=== PATIENT | male | born 1990 | race Caucasian/White ===

== ENCOUNTER 2017-01-31 11:32 | Emergency (ER) | payer SELFPAY ==
[2017-01-31] MEDS ORDERED: SODIUM CHLORIDE 0.9% 1,000 ML IV ONE (12:02)
[2017-01-31] MEDS ORDERED: KETOROLAC 30 MG/ML 1 ML VIAL IVP STA (12:02)
[2017-01-31] MEDS ORDERED: DEXAMETHASONE SOD PHOSPHATE 10 MG/ML 1 ML VIAL IV STA (12:02)
[2017-01-31] MEDS ORDERED: ONDANSETRON 4 MG/2 ML VIAL IVP STA (12:03)
--- NOTE | 2017-01-31 12:15 | ED ---
URI HPI - General Chief Complaint: Upper Respiratory Infection Stated Complaint: VOMITING, YELLOW PHLEM Source: patient Mode of arrival: ambulatory Limitations: no limitations - History of Present Illness Initial Comments: Patient is a 26-year-old male who presents for evaluation for sore throat, congestion, productive cough, mild headache over the last 3 days. Past medical history as below. During the last 3 days, the patient states he has had the above symptoms. States that he is sweating. Did not take his temperature to see if he has a fever but feels warm to the touch. Had a productive cough with yellow/white chunks. He has thick nasal drainage. Associated shortness of breath. States that he has a sore throat. He denies any drooling or difficulty swallowing. He does however state he has noticed a change in his voice. He states that it is deeper. Positive sick contacts with girlfriend who has similar symptoms. Did not get a flu shot this past year. Has tried [id number] remedies with some mild relief for about an hour. Yesterday he did have a couple episodes of emesis. He denies chest pain, abdominal pain, diarrhea, pain or burning with urination. - Related Data Home Medications Medication Instructions Recorded Confirmed D-Methorphan/Acetamin/Doxylamn 30 ml PO Q4-6H PRN 01/31/17 01/31/17 [Vicks Nyquil Cold & Flu Liquid] Phenylephrine/Dm/Acetaminop/GG 30 ml PO Q4-6H PRN 01/31/17 01/31/17 [Vicks Dayquil Severe Cold-Flu] guaiFENesin [Mucinex] 600 mg PO Q12HR 01/31/17 01/31/17 Previous Rx's Medication Instructions Recorded Amoxic-Pot Clav 875-125Mg 1 tab PO Q12HR 7 Days 01/31/17 [Augmentin 875-125] Allergies Allergy/AdvReac Type Severity Reaction Status Date / Time latex Allergy Unknown Verified 01/31/17 12:07 Sulfa (Sulfonamide Allergy Unknown Verified 01/31/17 12:07 Antibiotics) Review of Systems ROS Statement: Those systems with pertinent positive or pertinent negative responses have been documented in the HPI. ROS Other: All systems not noted in ROS Statement are negative. Past Medical History Past Medical History: Hearing Disorder / Deafness History of Any Multi-Drug Resistant Organisms: None Reported Past Surgical History: Orthopedic Surgery Additional Past Surgical History / Comment(s): face plastic surgery Past Psychological History: No Psychological Hx Reported Smoking Status: Current every day smoker Past Alcohol Use History: None Reported Past Drug Use History: None Reported General Exam Limitations: no limitations General appearance: alert, in no apparent distress, other (Nontoxic-appearing) Head exam: Present: atraumatic, normocephalic, normal inspection Eye exam: Present: normal appearance, PERRL, EOMI. Absent: scleral icterus, conjunctival injection, periorbital swelling ENT exam: Present: normal exam, mucous membranes moist, other (Mucous members are somewhat dry. Posterior oropharynx is erythematous. No tonsillar swelling or exudates. Posterior oropharynx is otherwise clear and I do not see any purulent drainage. His bilateral nasal turbinates are red and injected. No purulent drainage noted.) Neck exam: Present: normal inspection, lymphadenopathy, other (Anterior nontender cervical lymphadenopathy.). Absent: tenderness, meningismus Respiratory exam: Present: normal lung sounds bilaterally, other (Clear bilaterally without wheezes rales or rhonchi. No conversational dyspnea. No hypoxia.). Absent: respiratory distress, wheezes, rales, rhonchi, stridor Cardiovascular Exam: Present: regular rate, normal rhythm, normal heart sounds. Absent: systolic murmur, diastolic murmur, rubs, gallop, clicks GI/Abdominal exam: Present: soft, normal bowel sounds, other (Abdomen is soft and nontender. Negative Rodriguez sign. No peritoneal signs.). Absent: distended , tenderness, guarding, rebound, rigid Extremities exam: Present: normal inspection, full ROM, normal capillary refill. Absent: tenderness, pedal edema, joint swelling, calf tenderness Back exam: Present: normal inspection Neurological exam: Present: alert, oriented X3, CN II-XII intact Psychiatric exam: Present: normal affect, normal mood Skin exam: Present: warm, dry, intact, normal color. Absent: rash Course Vital Signs 01/31/17 01/31/17 11:43 13:42 Temperature 98.1 F 97.9 F Pulse Rate 90 63 Respiratory 20 18 Rate Blood Pressure 132/98 128/64 O2 Sat by Pulse 97 97 Oximetry Medical Decision Making - Medical Decision Making Patient is a 26-year-old male presents for evaluation for URI symptoms over the last 3 days. Is having chills with sweating and had 1 day history of nausea and vomiting. Clinically has bacterial URI. However with the change in his voice have a low concern for possible epiglottitis though he is not having any drooling or difficulty swallowing. Will order two-view chest x-ray with soft tissue neck. Influenza. Strep. Basic labs with IV fluids, steroids, Toradol. 1225: Notified by staff that the patient does not want any liquids going in him. Refusing IV fluids and IV medications. We'll order 10 mg by mouth Decadron and 400 mg by mouth Motrin. 1322: Reviewed lab studies. No abnormality. Flu/strep negative. Awaiting final read on plain films. 1400: Awaiting final reads from radiologist. 1405: Patient wants to leave AGAINST MEDICAL ADVICE. He states that he does not want to wait for the final reads for a chest x-ray and a soft tissue neck. Patient states that he just wants a work note so he can go home. Discussed risks and benefits of this including disability and . On my own read I do not see clear epiglottitis nor do I see a pneumonia. Because the patient was having white/yellow thick discharge from his nose and coughing up thick yellow discharge, will discharge home with a course of Augmentin. Encourage close follow-up with primary care physician. Discussed signs and symptoms on when to return to the emergency department for further evaluation. Patient voiced understanding. Understands risks of leaving without completion of services. - Lab Data Result diagrams: 01/31/17 12:32 01/31/17 12:32 Lab Results 01/31/17 01/31/17 01/31/17 Range/Units 12:32 12:32 12:32 WBC 9.4 (3.8-10.6) k/uL RBC 5.64 (4.30-5.90) m/uL Hgb 17.1 (13.0-17.5) gm/dL Hct 51.6 (39.0-53.0) % MCV 91.5 (80.0-100.0) fL MCH 30.4 (25.0-35.0) pg MCHC 33.2 (31.0-37.0) g/dL RDW 12.4 (11.5-15.5) % Plt Count 201 (150-450) k/uL Neutrophils % 69 % Lymphocytes % 23 % Monocytes % 3 % Eosinophils % 3 % Basophils % 0 % Neutrophils # 6.5 (1.3-7.7) k/uL Lymphocytes # 2.1 (1.0-4.8) k/uL Monocytes # 0.3 (0-1.0) k/uL Eosinophils # 0.3 (0-0.7) k/uL Basophils # 0.0 (0-0.2) k/uL Sodium 143 (137-145) mmol/L Potassium 5.0 (3.5-5.1) mmol/L Chloride 108 H (98-107) mmol/L Carbon Dioxide 28 (22-30) mmol/L Anion Gap 7 mmol/L BUN 9 (9-20) mg/dL Creatinine 0.95 (0.66-1.25) mg/dL Est GFR (MDRD) Af Amer >60 (>60 ml/min/1.73 sqM) Est GFR (MDRD) Non-Af >60 (>60 ml/min/1.73 sqM) Glucose 92 (74-99) mg/dL Calcium 9.7 (8.4-10.2) mg/dL Total Bilirubin 0.9 (0.2-1.3) mg/dL AST 25 (17-59) U/L ALT 20 L (21-72) U/L Alkaline Phosphatase 49 (38-126) U/L Total Protein 6.2 L (6.3-8.2) g/dL Albumin 3.8 (3.5-5.0) g/dL Influenza Type A RNA Not Detected (Not Detectd) Influenza Type B (PCR) Not Detected (Not Detectd) Group A Strep Rapid (Negative) 01/31/17 Range/Units 12:32 WBC (3.8-10.6) k/uL RBC (4.30-5.90) m/uL Hgb (13.0-17.5) gm/dL Hct (39.0-53.0) % MCV (80.0-100.0) fL MCH (25.0-35.0) pg MCHC (31.0-37.0) g/dL RDW (11.5-15.5) % Plt Count (150-450) k/uL Neutrophils % % Lymphocytes % % Monocytes % % Eosinophils % % Basophils % % Neutrophils # (1.3-7.7) k/uL Lymphocytes # (1.0-4.8) k/uL Monocytes # (0-1.0) k/uL Eosinophils # (0-0.7) k/uL Basophils # (0-0.2) k/uL Sodium (137-145) mmol/L Potassium (3.5-5.1) mmol/L Chloride (98-107) mmol/L Carbon Dioxide (22-30) mmol/L Anion Gap mmol/L BUN (9-20) mg/dL Creatinine (0.66-1.25) mg/dL Est GFR (MDRD) Af Amer (>60 ml/min/1.73 sqM) Est GFR (MDRD) Non-Af (>60 ml/min/1.73 sqM) Glucose (74-99) mg/dL Calcium (8.4-10.2) mg/dL Total Bilirubin (0.2-1.3) mg/dL AST (17-59) U/L ALT (21-72) U/L Alkaline Phosphatase (38-126) U/L Total Protein (6.3-8.2) g/dL Albumin (3.5-5.0) g/dL Influenza Type A RNA (Not Detectd) Influenza Type B (PCR) (Not Detectd) Group A Strep Rapid Negative (Negative) Disposition Clinical Impression: Sinusitis, Left against medical advice Disposition: Left Against Medical Advice Condition: Good Instructions: Upper Respiratory Infection (ED) Prescriptions: Amoxic-Pot Clav 875-125Mg [Augmentin 875-125] 1 tab PO Q12HR 7 Days Referrals: Marlys Watts MD [Primary Care Provider] - 1-2 days
[2017-01-31] MEDS ORDERED: ONDANSETRON ODT 4 MG TAB PO STA (12:26)
[2017-01-31] MEDS ORDERED: DEXAMETHASONE 4 MG TAB PO STA (12:26)
[2017-01-31] MEDS ORDERED: IBUPROFEN 600 MG TAB PO STA (12:26)
[2017-01-31 12:40] LABS: Basophils % (A) 0 %; CH 31.4; CHCM 34.5; Eosinophils # (A) 0.3 k/uL (0-0.7); Eosinophils % (A) 3 %; HCT 51.6 % (39.0-53.0); HDW 2.74; HGB 17.1 gm/dL (13.0-17.5); Luc # (Auto) 0.15; Luc % (Auto) 2; Lymphocytes # (A) 2.1 k/uL (1.0-4.8); Lymphocytes % (A) 23 %; MCH 30.4 pg (25.0-35.0); MCHC 33.2 g/dL (31.0-37.0); MCV 91.5 fL (80.0-100.0); Mean Platelet Volume 6.8; Monocytes # (A) 0.3 k/uL (0-1.0); Monocytes % (A) 3 %; Neutrophils # (A) 6.5 k/uL (1.3-7.7); Neutrophils % (A) 69 %; RBC 5.64 m/uL (4.30-5.90); RDW 12.4 % (11.5-15.5); WBC 9.4 k/uL (3.8-10.6); WBC (Perox) 9.53
[2017-01-31 12:53] LABS: ALT 20 U/L (21-72); AST 25 U/L (17-59); Alkaline Phosphatase 49 U/L (38-126); Anion Gap 7 mmol/L; Blood Urea Nitrogen 9 mg/dL (9-20); Calcium 9.7 mg/dL (8.4-10.2); Carbon Dioxide 28 mmol/L (22-30); Chloride 108 mmol/L (98-107); Glucose 92 mg/dL (74-99); Non-African American GFR(MDRD) >60 (>60 ml/min/1.73 sqM); Sodium 143 mmol/L (137-145); Total Bilirubin 0.9 mg/dL (0.2-1.3); Total Protein 6.2 g/dL (6.3-8.2)
[2017-01-31 13:44] VITALS: BP 128/64; PULSE 63; RESP 18; TEMP 97.9
--- NOTE | 2017-01-31 14:10 | XR ---
Soft tissue neck HISTORY: Cough 2 views of the neck No comparisons Cervical vertebral bodies show preserved height and alignment, disc spaces and prevertebral soft tiss ues are normal. Epiglottis shows a normal appearance in profile. Azygos lobe noted incidentally. Ther e is a spinal curvature in the thoracic spine. Airway is patent. IMPRESSION: No acute abnormality evident
--- NOTE | 2017-01-31 14:11 | XR ---
EXAMINATION TYPE: XR chest 2V DATE OF EXAM: 01/31/2017 1:07 PM COMPARISON: Chest x-ray dated 22 August 2016 HISTORY: Productive cough, pain TECHNIQUE: Frontal and lateral views of the chest are obtained. FINDINGS: There is no focal air space opacity, pleural effusion, or pneumothorax seen. The cardiac silhouette size is within normal limits. There is a spinal curvature. Azygos lobe is noted. The osse ous structures are intact. IMPRESSION: No acute cardiopulmonary process.
== END 2017-01-31 14:16 | disposition left against medical advice (07) ==
LOC: EC 11:32
DX: J32.9 Chronic sinusitis, unspecified (principal); H91.90 Unspecified hearing loss, unspecified ear; F17.200 Nicotine dependence, unspecified, uncomplicated; Z79.899 Other long term (current) drug therapy; Z88.2 Allergy status to sulfonamides; Z91.040 Latex allergy status
CPT/HCPCS: 36415; 80053; 85025; 87081; 87430; 87502; 70360; 71020; 99283; J8540

== ENCOUNTER 2017-10-05 00:27 | Emergency (ER) | payer OTHER ==
[2017-10-05 01:07] VITALS: RESP 18
[2017-10-05] MEDS ORDERED: KETOROLAC 30 MG/ML 1 ML VIAL IM STA (01:37)
--- NOTE | 2017-10-05 01:55 | XR ---
EXAMINATION TYPE: XR chest 2V DATE OF EXAM: 10/05/2017 COMPARISON: 01/31/2017 HISTORY: Back pain TECHNIQUE: Frontal and lateral views of the chest are obtained. FINDINGS: Heart and mediastinum are normal. Lungs are clear. Diaphragm is normal. Bony thorax is int act. IMPRESSION: Normal chest. No change. There is an noted in the right upper lobe azygos fissure which is a normal variant.
[2017-10-05 02:07] LABS: Appearance,Urine Clear (Clear); Bilirubin,Urine Negative (Negative); Glucose,Urine (UA) Negative (Negative); Ketones,Urine Negative (Negative); Leukocyte Esterase,Urine Negative (Negative); Nitrite,Urine Negative (Negative); PH, Urine 6.5 (5.0-8.0); Protein,Urine Negative (Negative); Specific Gravity,Urine 1.014 (1.001-1.035); UA Billing (MACRO vs. MICRO) CHEM; Urobilinogen,Urine <2.0 mg/dL (<2.0)
--- NOTE | 2017-10-05 02:13 | ED ---
Back Pain HPI - General Chief Complaint: Back Pain/Injury Stated Complaint: Back Pain Time Seen by Provider: 10/05/17 01:17 Source: patient Limitations: no limitations - History of Present Illness Initial Comments: 26-year-old male patient presents to the emergency department today for complaints of right subscapular back pain. Patient states that pain started 3- 4 days ago. He describes the pain as a dull aching pain. He states it does worsen with twisting motion. States that he did help his friend move and was lifting heavy boxes. He states that this worsened his pain. He states he did have to take the last 2 days off of work for this. He states that he does think it's getting better however he needed a work note to return to work. He denies any shortness of breath, cough, congestion, fever, or chills with this. He states that he does have a history of scoliosis and often does have back pain. He denies any numbness or tingling to his lower extremities. Denies any saddle anesthesia. Denies any loss of bowel or bladder function. Patient denies any headache, neck pain, dizziness, weakness, abdominal pain, nausea, vomiting, or difficulties with bowel movements or urination. - Related Data Home Medications Medication Instructions Recorded Confirmed Dm/Acetaminophen/Doxylamine [Vicks 30 ml PO Q4-6H PRN 01/31/17 01/31/17 Nyquil Cold & Flu Liquid] Phenylephrine/Dm/Acetaminop/GG 30 ml PO Q4-6H PRN 01/31/17 01/31/17 [Vicks Dayquil Severe Cold-Flu] guaiFENesin [Mucinex] 600 mg PO Q12HR 01/31/17 01/31/17 Previous Rx's Medication Instructions Recorded Amoxic-Pot Clav 875-125Mg 1 tab PO Q12HR 7 Days tablet 01/31/17 [Augmentin 875-125] Ibuprofen [Motrin] 600 mg PO Q8HR PRN #30 tab 10/05/17 Allergies Allergy/AdvReac Type Severity Reaction Status Date / Time latex Allergy Unknown Verified 10/05/17 00:46 Sulfa (Sulfonamide Allergy Unknown Verified 10/05/17 00:46 Antibiotics) Review of Systems ROS Statement: Those systems with pertinent positive or pertinent negative responses have been documented in the HPI. ROS Other: All systems not noted in ROS Statement are negative. Past Medical History Past Medical History: Hearing Disorder / Deafness History of Any Multi-Drug Resistant Organisms: None Reported Past Surgical History: Orthopedic Surgery Additional Past Surgical History / Comment(s): face plastic surgery Past Psychological History: No Psychological Hx Reported Smoking Status: Current every day smoker Past Alcohol Use History: Occasional Past Drug Use History: Marijuana General Exam Limitations: no limitations General appearance: alert, in no apparent distress, other (This is a well- developed, well-nourished adult male patient in no acute distress. Vital signs upon presentation were temperature 97.8F, pulse 129, respirations 18, blood pressure 162/86, pulse ox 97% on room air.) Eye exam: Present: normal appearance, PERRL, EOMI. Absent: scleral icterus, conjunctival injection, periorbital swelling Respiratory exam: Present: normal lung sounds bilaterally. Absent: respiratory distress, wheezes, rales, rhonchi, stridor Cardiovascular Exam: Present: regular rate, normal rhythm, normal heart sounds. Absent: systolic murmur, diastolic murmur, rubs, gallop, clicks GI/Abdominal exam: Present: soft, normal bowel sounds. Absent: distended, tenderness, guarding, rebound, rigid Extremities exam: Present: normal inspection, full ROM, normal capillary refill , other (Strength in upper extremities is 5/5. Full range of motion. Skin pink , warm, and dry.). Absent: tenderness, pedal edema, joint swelling, calf tenderness Back exam: Present: normal inspection, tenderness (Numbness over the right subscapular region.), other (Curvature of the spine noted). Absent: vertebral tenderness Neurological exam: Present: alert, oriented X3, CN II-XII intact Psychiatric exam: Present: normal affect, normal mood Skin exam: Present: warm, dry, intact, normal color. Absent: rash Course Vital Signs 10/05/17 10/05/17 00:44 02:28 Temperature 97.8 F 98 F Pulse Rate 129 H 65 Respiratory 18 18 Rate Blood Pressure 162/86 140/76 O2 Sat by Pulse 97 100 Oximetry Medical Decision Making - Medical Decision Making 26-year-old male patient presented to the emergency department today for evaluation of right subscapular back pain. Physical examination did reveal some mild tenderness to the subscapular region. Lungs were clear. A chest x- ray was obtained which showed no acute cardiopulmonary process. EKG was obtained and was stable. Patient will be discharged home at this time with a prescription for ibuprofen. He is instructed to follow-up with his primary care physician for recheck in 1-2 days. He is instructed to return here immediately for any new, worsening, or concerning symptoms. He verbalizes understanding and agrees with this plan. - Lab Data Lab Results 10/05/17 Range/Units 01:55 Urine Color Yellow Urine Appearance Clear (Clear) Urine pH 6.5 (5.0-8.0) Ur Specific [place] 1.014 (1.001-1.035) Urine Protein Negative (Negative) Urine Glucose (UA) Negative (Negative) Urine Ketones Negative (Negative) Urine Blood Negative (Negative) Urine Nitrite Negative (Negative) Urine Bilirubin Negative (Negative) Urine Urobilinogen <2.0 (<2.0) mg/dL Ur Leukocyte Esterase Negative (Negative) 10/05/17 03:49 EKG obtained at 0154 shows sinus rhythm with a sinus arrhythmia. Left anterior fascicular block. Ventricular rate of 66, LA interval 144, QRS duration 110, QT 400, QTC 419. The fascicular block was stable when compared to EKG from 06/2016. 10/05/17 03:53 - Radiology Data Radiology results: report reviewed, image reviewed Two-view x-ray of the chest shows the heart and mediastinum are normal. Lungs are clear. Diaphragm is normal. Bony thorax is intact. Impression by Dr. Mcclure shows normal chest with no change. There is an noted in the upper lobe azygous fissure which is a normal variant. Disposition Clinical Impression: Back pain Disposition: HOME SELF-CARE Condition: Good Instructions: Back Pain (ED) Additional Instructions: Apply warm moist heat to the area for pain. Take ibuprofen and Tylenol for pain control. Follow-up with your primary care physician for recheck in 1-2 days. Return here immediately for any new, worsening, or concerning symptoms. Prescriptions: Ibuprofen [Motrin] 600 mg PO Q8HR PRN #30 tab PRN Reason: Pain Referrals: Marlys Watts MD [Primary Care Provider] - 1-2 days Time of Disposition: 02:21
[2017-10-05 02:30] VITALS: BP 140/76; PULSE 65; TEMP 98
== END 2017-10-05 02:28 | disposition home or self-care (01) ==
LOC: EC 00:27
DX: M54.9 Dorsalgia, unspecified (principal); F17.200 Nicotine dependence, unspecified, uncomplicated; Z87.39 Personal history of other diseases of the musculoskeletal system and connective tissue; Z79.899 Other long term (current) drug therapy; Z91.040 Latex allergy status; Z88.2 Allergy status to sulfonamides; X50.0XXA Overexertion from strenuous movement or load, initial encounter; Y93.89 Activity, other specified
CPT/HCPCS: 71020; 81003; 93005; 96372; 99284

== ENCOUNTER 2018-04-29 08:45 | Emergency (ER) | payer OTHER ==
[2018-04-29 08:56] VITALS: RESP 18; TEMP 98.5
[2018-04-29] MEDS ORDERED: ONDANSETRON 4 MG/2 ML VIAL IVP STA (09:07)
[2018-04-29] MEDS ORDERED: SODIUM CHLORIDE 0.9% 1,000 ML IV STA (09:07)
[2018-04-29] MEDS ORDERED: FAMOTIDINE 20 MG/2 ML VIAL IV STA (09:07)
--- NOTE | 2018-04-29 09:11 | ED ---
General Adult HPI - General Chief complaint: Abdominal Pain Stated complaint: ABDOMINAL PAIN, VOMITING, NOT EATING, WEAK Time Seen by Provider: 04/29/18 09:02 Source: patient, RN notes reviewed, old records reviewed Mode of arrival: ambulatory Limitations: no limitations - History of Present Illness Initial comments: Patient 27-year-old male presented emergency room today with chief complaint of symptoms of nausea vomiting that increased last 3 days. He does not that over the last several months patient having some symptoms like this. Patient states that he has symptoms a few hours after she wakes up every morning. She states that has had a difficult time keeping anything down. Does admit that he smoked marijuana yesterday which did help keep down one piece of toast. Patient states that it's bandages mobile that he's been vomiting no signs of blood in the emesis. Admits to cramping in the abdomen. Patient denies any other complaints or symptoms. Patient denies any recent fever, chills, shortness of breath, chest pain, back pain numbness or tingling, dysuria or hematuria, constipation or diarrhea, headaches or visual changes, or any other complaints. - Related Data Previous Rx's Medication Instructions Recorded Famotidine [Pepcid] 20 mg PO BID #20 tablet 04/29/18 Ondansetron Odt [Zofran ODT] 4 mg PO Q8HR PRN #20 tab 04/29/18 Allergies Allergy/AdvReac Type Severity Reaction Status Date / Time latex Allergy Unknown Verified 04/29/18 09:01 Sulfa (Sulfonamide Allergy Unknown Verified 04/29/18 09:01 Antibiotics) lactose AdvReac Unknown Verified 04/29/18 09:01 berrie Allergy Swelling Uncoded 04/29/18 08:57 Review of Systems ROS Statement: Those systems with pertinent positive or pertinent negative responses have been documented in the HPI. ROS Other: All systems not noted in ROS Statement are negative. Past Medical History Past Medical History: Hearing Disorder / Deafness History of Any Multi-Drug Resistant Organisms: None Reported Past Surgical History: Orthopedic Surgery Additional Past Surgical History / Comment(s): face plastic surgery Past Psychological History: No Psychological Hx Reported Smoking Status: Current every day smoker Past Alcohol Use History: Occasional Past Drug Use History: Marijuana General Exam - General Exam Comments Initial Comments: General: The patient is awake and alert, in no distress, and does not appear acutely ill. Eye: Pupils are equal, round and reactive to light, extra-ocular movements are intact. No nystagmus. There is normal conjunctiva bilaterally. No signs of icterus. Ears, nose, mouth and throat: There are moist mucous membranes and no oral lesions. Neck: The neck is supple, there is no tenderness or JVD. Cardiovascular: There is a regular rate and rhythm. No murmur, rub or gallop is appreciated. Respiratory: Lungs are clear to auscultation, respirations are non-labored, breath sounds are equal. No wheezes, stridor, rales, or rhonchi. Gastrointestinal: Soft, non-distended, non-tender abdomen without masses or organomegaly noted. There is no rebound or guarding present. No CVA tenderness. Musculoskeletal: Normal ROM, no tenderness. Strength 5/5. Sensation intact. Neurological: A&O x 3. CN II-XII intact, There are no obvious motor or sensory deficits. Coordination appears grossly intact. Speech is normal. Skin: Skin is warm and dry and no rashes or lesions are noted. Psychiatric: Cooperative, appropriate mood & affect, normal judgment. Limitations: no limitations Course Vital Signs 04/29/18 04/29/18 04/29/18 08:53 09:36 10:46 Temperature 98.5 F Pulse Rate 86 67 81 Respiratory 18 18 18 Rate Blood Pressure 145/83 135/79 129/75 O2 Sat by Pulse 97 98 97 Oximetry Medical Decision Making - Medical Decision Making Patient's labs and x-rays have been reviewed. Mildly elevated bilirubin at 1.5. Patient was comfortable states he feels much better at this time. Patient was given Zofran, Pepcid for symptoms. Patient will be discharged home with prescription. Advised follow-up family doctor over the next 2 days. Advised return for any other concerns. - Lab Data Result diagrams: 04/29/18 09:25 04/29/18 09:25 Lab Results 04/29/18 04/29/18 04/29/18 Range/Units 09:25 09:25 10:44 WBC 7.3 (3.8-10.6) k/uL RBC 5.43 (4.30-5.90) m/uL Hgb 17.3 (13.0-17.5) gm/dL Hct 48.6 (39.0-53.0) % MCV 89.6 (80.0-100.0) fL MCH 31.9 (25.0-35.0) pg MCHC 35.6 (31.0-37.0) g/dL RDW 13.3 (11.5-15.5) % Plt Count 165 (150-450) k/uL Neutrophils % 72 % Lymphocytes % 21 % Monocytes % 3 % Eosinophils % 2 % Basophils % 0 % Neutrophils # 5.3 (1.3-7.7) k/uL Lymphocytes # 1.6 (1.0-4.8) k/uL Monocytes # 0.2 (0-1.0) k/uL Eosinophils # 0.1 (0-0.7) k/uL Basophils # 0.0 (0-0.2) k/uL Sodium 143 (137-145) mmol/L Potassium 3.8 (3.5-5.1) mmol/L Chloride 108 H (98-107) mmol/L Carbon Dioxide 25 (22-30) mmol/L Anion Gap 10 mmol/L BUN 14 (9-20) mg/dL Creatinine 1.04 (0.66-1.25) mg/dL Est GFR (CKD-EPI)AfAm >90 (>60 ml/min/1.73 sqM) Est GFR (CKD-EPI)NonAf >90 (>60 ml/min/1.73 sqM) Glucose 102 H (74-99) mg/dL Calcium 9.7 (8.4-10.2) mg/dL Total Bilirubin 1.5 H (0.2-1.3) mg/dL AST 18 (17-59) U/L ALT 22 (21-72) U/L Alkaline Phosphatase 54 (38-126) U/L Total Protein 6.7 (6.3-8.2) g/dL Albumin 4.5 (3.5-5.0) g/dL Amylase 59 (30-110) U/L Lipase 32 (23-300) U/L Urine Color Yellow Urine Appearance Clear (Clear) Urine pH 6.5 (5.0-8.0) Ur Specific [place] 1.029 (1.001-1.035) Urine Protein Trace H (Negative) Urine Glucose (UA) Negative (Negative) Urine Ketones 1+ H (Negative) Urine Blood Negative (Negative) Urine Nitrite Negative (Negative) Urine Bilirubin 1+ H (Negative) Urine Urobilinogen 4.0 (<2.0) mg/dL Ur Leukocyte Esterase Negative (Negative) Disposition Clinical Impression: Nausea & vomiting Disposition: HOME SELF-CARE Condition: Good Instructions: Acute Nausea and Vomiting (ED) Additional Instructions: Please use medication as discussed. Please follow-up with family doctor in the next 2 days of symptoms have not improved. Please return to emergency room if the symptoms increase or worsen or for any other concerns. Prescriptions: Famotidine [Pepcid] 20 mg PO BID #20 tablet Ondansetron Odt [Zofran ODT] 4 mg PO Q8HR PRN #20 tab PRN Reason: Nausea Is patient prescribed a controlled substance at d/c from ED?: No Referrals: Marlys Watts MD [Primary Care Provider] - 1-2 days Time of Disposition: 11:05
[2018-04-29 09:46] LABS: Basophils % (A) 0 %; Eosinophils # (A) 0.1 k/uL (0-0.7); Eosinophils % (A) 2 %; HCT 48.6 % (39.0-53.0); HGB 17.3 gm/dL (13.0-17.5); Lymphocytes # (A) 1.6 k/uL (1.0-4.8); Lymphocytes % (A) 21 %; MCH 31.9 pg (25.0-35.0); MCHC 35.6 g/dL (31.0-37.0); MCV 89.6 fL (80.0-100.0); Mean Platelet Volume 6.8; Monocytes # (A) 0.2 k/uL (0-1.0); Monocytes % (A) 3 %; Neutrophils # (A) 5.3 k/uL (1.3-7.7); Neutrophils % (A) 72 %; Platelet Count 165 k/uL (150-450); RBC 5.43 m/uL (4.30-5.90); RDW 13.3 % (11.5-15.5); WBC 7.3 k/uL (3.8-10.6)
--- NOTE | 2018-04-29 09:56 | XR ---
Abdomen HISTORY: Vomiting, pain Frontal view of the abdomen on 2 images Lung bases are clear. There is no evident pneumoperitoneum or bowel obstruction. Mild spinal curvatur e is noted. Bone mineralization is within normal limits. There may be spina bifida occulta present at the lower spine. Mild air-fluid levels without bowel distention. IMPRESSION: Nonobstructive bowel gas pattern. Correlate for enteritis.
[2018-04-29 09:57] LABS: ALT 22 U/L (21-72); AST 18 U/L (17-59); Albumin 4.5 g/dL (3.5-5.0); Alkaline Phosphatase 54 U/L (38-126); Amylase 59 U/L (30-110); Anion Gap 10 mmol/L; Blood Urea Nitrogen 14 mg/dL (9-20); Calcium 9.7 mg/dL (8.4-10.2); Carbon Dioxide 25 mmol/L (22-30); Chloride 108 mmol/L (98-107); Glucose 102 mg/dL (74-99); Lipase 32 U/L (23-300); Potassium 3.8 mmol/L (3.5-5.1); Sodium 143 mmol/L (137-145); Total Bilirubin 1.5 mg/dL (0.2-1.3); Total Protein 6.7 g/dL (6.3-8.2)
[2018-04-29 10:53] LABS: Appearance,Urine Clear (Clear); Bilirubin,Urine 1+ (Negative); Blood,Urine Negative (Negative); Color,Urine Yellow; Glucose,Urine (UA) Negative (Negative); Ketones,Urine 1+ (Negative); Leukocyte Esterase,Urine Negative (Negative); Nitrite,Urine Negative (Negative); PH, Urine 6.5 (5.0-8.0); Protein,Urine Trace (Negative); Specific Gravity,Urine 1.029 (1.001-1.035)
[2018-04-29 11:27] VITALS: BP 129/79; PULSE 73
== END 2018-04-29 11:26 | disposition home or self-care (01) ==
LOC: EC 08:45
DX: R11.2 Nausea with vomiting, unspecified (principal); R79.89 Other specified abnormal findings of blood chemistry; R10.9 Unspecified abdominal pain; H91.90 Unspecified hearing loss, unspecified ear; F17.200 Nicotine dependence, unspecified, uncomplicated; Z88.2 Allergy status to sulfonamides; Z91.011 Allergy to milk products; Z91.018 Allergy to other foods; Z91.040 Latex allergy status
CPT/HCPCS: 36415; 80053; 82150; 83690; 85025; 81003; 74018; 99284; 96374; 96375; 96361 ×2; J2405

== ENCOUNTER 2020-08-31 17:00 | Emergency (ER) | payer OTHER ==
[2020-08-31 17:06] VITALS: BP 135/90; PULSE 98; RESP 20; TEMP 98.4
--- NOTE | 2020-08-31 17:51 | XR ---
EXAMINATION TYPE: XR chest 2V DATE OF EXAM: 08/31/2020 COMPARISON: 10/05/2017 HISTORY: Cough TECHNIQUE: FINDINGS: Heart and mediastinum are normal. Lungs are clear. Diaphragm is normal. Bony thorax appears normal. IMPRESSION: Normal chest. No change.
--- NOTE | 2020-08-31 18:11 | ED ---
General Adult HPI - General Chief complaint: Upper Respiratory Infection Stated complaint: cold Time Seen by Provider: 08/31/20 17:12 Source: patient Mode of arrival: ambulatory Limitations: no limitations - History of Present Illness Initial comments: Patient is a 21-year-old male presenting to the emergency department with a chief complaint of a cough. Patient reports symptoms began yesterday area states his brother also had the similar symptoms that started about 2 days ago. States he has a productive cough with yellow sputum production. Does report rhinorrhea and a sore throat. Denies any night sweats or chills. No loss of taste or smell. He is a smoker. - Related Data Previous Rx's Medication Instructions Recorded Famotidine [Pepcid] 20 mg PO BID #20 tablet 04/29/18 Ondansetron Odt [Zofran ODT] 4 mg PO Q8HR PRN #20 tab 04/29/18 Allergies Allergy/AdvReac Type Severity Reaction Status Date / Time latex Allergy Unknown Verified 08/31/20 17:06 Sulfa (Sulfonamide Allergy Unknown Verified 08/31/20 17:06 Antibiotics) lactose AdvReac Unknown Verified 08/31/20 17:06 berrie Allergy Swelling Uncoded 08/31/20 17:06 Review of Systems ROS Statement: Those systems with pertinent positive or pertinent negative responses have been documented in the HPI. ROS Other: All systems not noted in ROS Statement are negative. Past Medical History Past Medical History: Hearing Disorder / Deafness History of Any Multi-Drug Resistant Organisms: None Reported Past Surgical History: Orthopedic Surgery Additional Past Surgical History / Comment(s): face plastic surgery Past Psychological History: No Psychological Hx Reported Smoking Status: Current every day smoker Past Alcohol Use History: Occasional Past Drug Use History: Marijuana General Exam Limitations: no limitations General appearance: alert, in no apparent distress Head exam: Present: atraumatic, normocephalic, normal inspection Eye exam: Present: normal appearance, PERRL, EOMI Pupils: Present: normal accommodation ENT exam: Present: normal exam, normal oropharynx, mucous membranes moist, TM's normal bilaterally, normal external ear exam Neck exam: Present: normal inspection, full ROM. Absent: tenderness Respiratory exam: Present: normal lung sounds bilaterally. Absent: respiratory distress, wheezes, rales Cardiovascular Exam: Present: regular rate, normal rhythm, normal heart sounds Extremities exam: Present: normal inspection, full ROM, normal capillary refill. Absent: tenderness Back exam: Present: normal inspection, full ROM. Absent: tenderness, CVA tenderness (R), CVA tenderness (L) Neurological exam: Present: alert, oriented X3, normal gait Psychiatric exam: Present: normal affect, normal mood Skin exam: Present: warm, dry, intact, normal color Course Vital Signs 08/31/20 17:01 Temperature 98.4 F Pulse Rate 98 Respiratory 20 Rate Blood Pressure 135/90 O2 Sat by Pulse 98 Oximetry Medical Decision Making - Medical Decision Making Patient is 29-year-old male presenting to emergency Department with a chief complaint of a cough. Physical examination, patient is clear to auscultation. He is otherwise well-appearing. X-rays unremarkable. I do suspect bronchitis. Patient advised to follow with his primary care physician. I counseled the patient for smoking cessation for greater than 3 minutes Case discussed with physician. Disposition Clinical Impression: Bronchitis Disposition: HOME SELF-CARE Condition: Stable Instructions (If sedation given, give patient instructions): Acute Bronchitis (ED) Additional Instructions: Follow-up with her primary care physician. Return to emergency department if symptoms worsen. Is patient prescribed a controlled substance at d/c from ED?: No Referrals: None,Stated [Primary Care Provider] - 1-2 days Time of Disposition: 18:11
== END 2020-08-31 18:26 | disposition home or self-care (01) ==
LOC: EC 17:00
DX: J40 Bronchitis, not specified as acute or chronic (principal); F17.200 Nicotine dependence, unspecified, uncomplicated; Z88.2 Allergy status to sulfonamides; Z91.018 Allergy to other foods; Z91.040 Latex allergy status
CPT/HCPCS: 71046; 99283

== ENCOUNTER 2021-03-25 14:28 | Emergency (ER) | payer OTHER ==
[2021-03-25 14:33] VITALS: BP 141/89; PULSE 97; RESP 18; TEMP 98.1
--- NOTE | 2021-03-25 15:46 | ED ---
GI Bleed HPI - General Chief complaint: GI Bleed Stated complaint: Rectal Bleeding Time Seen by Provider: 03/25/21 15:45 Source: patient Mode of arrival: ambulatory Limitations: no limitations - History of Present Illness Initial comments: 30-year-old male with history of lactose intolerance presented to emergency department with a chief complaint of rectal bleeding. Patient reports about 3 weeks ago he had milk which caused him to be constipated and then he had a large bowel movement. Patient reports he noticed small amounts of bleeding when wipin g after incident. Patient reports ever since then, he is developed rectal bleeding whenever he is wiping. States his stool is usually dark brown color. He'll reports pain when defecating if he is eating any dairy products. He also reports intermittent, diffuse abdominal cramping. He does report history of irregular bowel movements for many years. He denies any nausea or vomiting or diarrhea. Denies any chest pain shortness of breath. Denies any testicular swelling, erythema or penile symptoms. - Related Data Previous Rx's Medication Instructions Recorded Famotidine [Pepcid] 20 mg PO BID #20 tablet 04/29/18 Ondansetron Odt [Zofran ODT] 4 mg PO Q8HR PRN #20 tab 04/29/18 Guaifenesin/Dextromethorphan 1 each PO BID #30 tab 08/31/20 [Mucinex Dm ER 1,200-60 mg Tab] Allergies Allergy/AdvReac Type Severity Reaction Status Date / Time latex Allergy Unknown Verified 03/25/21 14:33 Sulfa (Sulfonamide Allergy Unknown Verified 03/25/21 14:33 Antibiotics) lactose AdvReac Unknown Verified 03/25/21 14:33 berrie Allergy Swelling Uncoded 03/25/21 14:33 Review of Systems ROS Statement: Those systems with pertinent positive or pertinent negative responses have been documented in the HPI. ROS Other: All systems not noted in ROS Statement are negative. Past Medical History Past Medical History: Hearing Disorder / Deafness History of Any Multi-Drug Resistant Organisms: None Reported Past Surgical History: Orthopedic Surgery Additional Past Surgical History / Comment(s): face plastic surgery Past Psychological History: No Psychological Hx Reported Smoking Status: Current every day smoker Past Alcohol Use History: Occasional Past Drug Use History: Marijuana General Exam Limitations: no limitations General appearance: alert, in no apparent distress Head exam: Present: atraumatic, normocephalic, normal inspection Eye exam: Present: normal appearance, PERRL, EOMI Pupils: Present: normal accommodation ENT exam: Present: normal exam, normal oropharynx, mucous membranes moist Neck exam: Present: normal inspection, full ROM. Absent: tenderness Respiratory exam: Present: normal lung sounds bilaterally. Absent: respiratory distress Cardiovascular Exam: Present: regular rate, normal rhythm, normal heart sounds. Absent: systolic murmur GI/Abdominal exam: Present: soft. Absent: distended, tenderness, guarding, rebound, rigid Rectal exam: Present: normal inspection, normal rectal tone. Absent: black sto ol, hemorrhoids Extremities exam: Present: normal inspection, full ROM, normal capillary refill. Absent: tenderness Back exam: Present: normal inspection, full ROM Neurological exam: Present: alert, oriented X3 Psychiatric exam: Present: normal affect, normal mood Skin exam: Present: warm, dry, intact, normal color Course Vital Signs 03/25/21 14:30 Temperature 98.1 F Pulse Rate 97 Respiratory 18 Rate Blood Pressure 141/89 O2 Sat by Pulse 97 Oximetry Medical Decision Making - Medical Decision Making 30-year-old male presents emergency Department with a chief complaint of rectal pain. KUB is unremarkable. CBC, CMP, UA unremarkable. Occult stool is negative. On physical examination, no signs of hemorrhoids. I do suspect the patient's symptoms are secondary to a possible rectal tear after having a large bowel movement 3 weeks ago. I have lower suspicion for a fissure at this time due to not having significant pain with bowel movements. Patient was advised to follow with a GI specialist. Return parameters were discussed with patient was understanding and agreeable. Case discussed with - Lab Data Result diagrams: 03/25/21 16:07 03/25/21 16:07 Lab Results 03/25/21 03/25/21 03/25/21 Range/Units 16:07 16:07 16:07 WBC 4.8 (3.8-10.6) k/uL RBC 5.59 (4.30-5.90) m/uL Hgb 17.6 H (13.0-17.5) gm/dL Hct 51.5 (39.0-53.0) % MCV 92.1 (80.0-100.0) fL MCH 31.5 (25.0-35.0) pg MCHC 34.2 (31.0-37.0) g/dL RDW 12.3 (11.5-15.5) % Plt Count 161 (150-450) k/uL MPV 7.9 Neutrophils % 53 % Lymphocytes % 32 % Monocytes % 8 % Eosinophils % 4 % Basophils % 1 % Neutrophils # 2.6 (1.3-7.7) k/uL Lymphocytes # 1.5 (1.0-4.8) k/uL Monocytes # 0.4 (0-1.0) k/uL Eosinophils # 0.2 (0-0.7) k/uL Basophils # 0.1 (0-0.2) k/uL Sodium 141 (137-145) mmol/L Potassium 4.4 (3.5-5.1) mmol/L Chloride 105 (98-107) mmol/L Carbon Dioxide 28 (22-30) mmol/L Anion Gap 8 mmol/L BUN 20 (9-20) mg/dL Creatinine 0.97 (0.66-1.25) mg/dL Est GFR (CKD-EPI)AfAm >90 (>60 ml/min/1.73 sqM) Est GFR (CKD-EPI)NonAf >90 (>60 ml/min/1.73 sqM) Glucose 92 (74-99) mg/dL Calcium 9.8 (8.4-10.2) mg/dL Total Bilirubin 0.4 (0.2-1.3) mg/dL AST 31 (17-59) U/L ALT 14 (4-49) U/L Alkaline Phosphatase 76 (38-126) U/L Total Protein 7.1 (6.3-8.2) g/dL Albumin 4.6 (3.5-5.0) g/dL Urine Color Urine Appearance (Clear) Urine pH (5.0-8.0) Ur Specific Bard (1.001-1.035) Urine Protein (Negative) Urine Glucose (UA) (Negative) Urine Ketones (Negative) Urine Blood (Negative) Urine Nitrite (Negative) Urine Bilirubin (Negative) Urine Urobilinogen (<2.0) mg/dL Ur Leukocyte Esterase (Negative) Stool Occult Blood Negative (Negative) 03/25/21 Range/Units 16:07 WBC (3.8-10.6) k/uL RBC (4.30-5.90) m/uL Hgb (13.0-17.5) gm/dL Hct (39.0-53.0) % MCV (80.0-100.0) fL MCH (25.0-35.0) pg MCHC (31.0-37.0) g/dL RDW (11.5-15.5) % Plt Count (150-450) k/uL MPV Neutrophils % % Lymphocytes % % Monocytes % % Eosinophils % % Basophils % % Neutrophils # (1.3-7.7) k/uL Lymphocytes # (1.0-4.8) k/uL Monocytes # (0-1.0) k/uL Eosinophils # (0-0.7) k/uL Basophils # (0-0.2) k/uL Sodium (137-145) mmol/L Potassium (3.5-5.1) mmol/L Chloride (98-107) mmol/L Carbon Dioxide (22-30) mmol/L Anion Gap mmol/L BUN (9-20) mg/dL Creatinine (0.66-1.25) mg/dL Est GFR (CKD-EPI)AfAm (>60 ml/min/1.73 sqM) Est GFR (CKD-EPI)NonAf (>60 ml/min/1.73 sqM) Glucose (74-99) mg/dL Calcium (8.4-10.2) mg/dL Total Bilirubin (0.2-1.3) mg/dL AST (17-59) U/L ALT (4-49) U/L Alkaline Phosphatase (38-126) U/L Total Protein (6.3-8.2) g/dL Albumin (3.5-5.0) g/dL Urine Color Yellow Urine Appearance Clear (Clear) Urine pH 6.5 (5.0-8.0) Ur Specific Bard 1.015 (1.001-1.035) Urine Protein Negative (Negative) Urine Glucose (UA) Negative (Negative) Urine Ketones Negative (Negative) Urine Blood Negative (Negative) Urine Nitrite Negative (Negative) Urine Bilirubin Negative (Negative) Urine Urobilinogen <2.0 (<2.0) mg/dL Ur Leukocyte Esterase Negative (Negative) Stool Occult Blood (Negative) Disposition Clinical Impression: Rectal bleeding Disposition: HOME SELF-CARE Condition: Stable Instructions (If sedation given, give patient instructions): Gastrointestinal Bleeding (ED) Additional Instructions: Follow-up with a GI specialist. Avoid eating dairy. Return to emergency department if symptoms worsen. Is patient prescribed a controlled substance at d/c from ED?: No Referrals: None,Stated [Primary Care Provider] - 1-2 days Jag Cheney MD [STAFF PHYSICIAN] - 1-2 days Time of Disposition: 17:07
[2021-03-25 16:29] LABS: Basophils # (A) 0.1 k/uL (0-0.2); Basophils % (A) 1 %; Eosinophils # (A) 0.2 k/uL (0-0.7); Eosinophils % (A) 4 %; HCT 51.5 % (39.0-53.0); HGB 17.6 gm/dL (13.0-17.5); Lymphocytes # (A) 1.5 k/uL (1.0-4.8); Lymphocytes % (A) 32 %; MCH 31.5 pg (25.0-35.0); MCHC 34.2 g/dL (31.0-37.0); MCV 92.1 fL (80.0-100.0); Mean Platelet Volume 7.9; Monocytes # (A) 0.4 k/uL (0-1.0); Monocytes % (A) 8 %; Neutrophils # (A) 2.6 k/uL (1.3-7.7); Neutrophils % (A) 53 %; Platelet Count 161 k/uL (150-450); RBC 5.59 m/uL (4.30-5.90); RDW 12.3 % (11.5-15.5); WBC 4.8 k/uL (3.8-10.6)
[2021-03-25 16:31] LABS: Appearance,Urine Clear (Clear); Bilirubin,Urine Negative (Negative); Blood,Urine Negative (Negative); Color,Urine Yellow; Glucose,Urine (UA) Negative (Negative); Ketones,Urine Negative (Negative); Leukocyte Esterase,Urine Negative (Negative); Nitrite,Urine Negative (Negative); PH, Urine 6.5 (5.0-8.0); Protein,Urine Negative (Negative); Specific Gravity,Urine 1.015 (1.001-1.035); Urobilinogen,Urine <2.0 mg/dL (<2.0)
--- NOTE | 2021-03-25 16:33 | XR ---
KUB HISTORY: Blood in stool, abdominal pain, abnormal bowel movement Frontal KUB and 2 images correlated prior exam 04/29/2018 There is a spinal curvature. Lung bases are clear. There is no evident bowel obstruction or pneumoper itoneum. No pathologic calcification is evident. Overlying artifact present over the scrotum. IMPRESSION: Nonobstructive bowel gas pattern. Additional findings above.
[2021-03-25 16:40] LABS: ALT 14 U/L (4-49); AST 31 U/L (17-59); African American GFR (CKD) >90 (>60 ml/min/1.73 sqM); Albumin 4.6 g/dL (3.5-5.0); Alkaline Phosphatase 76 U/L (38-126); Anion Gap 8 mmol/L; Blood Urea Nitrogen 20 mg/dL (9-20); Calcium 9.8 mg/dL (8.4-10.2); Carbon Dioxide 28 mmol/L (22-30); Chloride 105 mmol/L (98-107); Glucose 92 mg/dL (74-99); Non-African American GFR(CKD) >90 (>60 ml/min/1.73 sqM); Potassium 4.4 mmol/L (3.5-5.1); Sodium 141 mmol/L (137-145); Total Bilirubin 0.4 mg/dL (0.2-1.3); Total Protein 7.1 g/dL (6.3-8.2)
== END 2021-03-25 17:20 | disposition home or self-care (01) ==
LOC: EC 14:28
DX: K92.1 Melena (principal); R10.84 Generalized abdominal pain; H91.90 Unspecified hearing loss, unspecified ear; F17.200 Nicotine dependence, unspecified, uncomplicated; F12.90 Cannabis use, unspecified, uncomplicated
CPT/HCPCS: 36415; 74018; 80053; 81003; 82272; 85025; 99284

== ENCOUNTER 2021-03-26 19:20 | Emergency (ER) | payer OTHER ==
[2021-03-26 19:38] VITALS: BP 145/88; PULSE 78; RESP 20; TEMP 98.3
--- NOTE | 2021-03-26 20:06 | XR ---
EXAMINATION TYPE: XR chest 1V DATE OF EXAM: 03/26/2021 COMPARISON: 08/31/2020 HISTORY: Cough TECHNIQUE: Single view FINDINGS: Heart and mediastinum are normal. Lungs are clear. Diaphragm is normal. Bony thorax appears normal. IMPRESSION: Normal chest. No change.
--- NOTE | 2021-03-26 20:14 | ED ---
General Adult HPI - General Chief complaint: Upper Respiratory Infection Stated complaint: SOB,Fever,No taste or smell Time Seen by Provider: 03/26/21 19:42 Source: patient, RN notes reviewed Mode of arrival: ambulatory Limitations: physical limitation - History of Present Illness Initial comments: 30-year-old male presents to the emergency room for a chief complaint of loss of taste. Patient reports that he lost his taste last night. Patient was smoking marijuana and thought he was too high to taste anything however this morning his loss of taste persisted. Patient went to work at [employer] and noticed he could not smell anything. Patient states he is somewhat fatigued as well. Has very very slight shortness of breath. Patient states he is concerned he could have coronavirus.Patient has no other complaints at this time including shortness of breath, chest pain, abdominal pain, nausea or vomiting, headache, or visual changes. - Related Data Previous Rx's Medication Instructions Recorded Famotidine [Pepcid] 20 mg PO BID #20 tablet 04/29/18 Ondansetron Odt [Zofran ODT] 4 mg PO Q8HR PRN #20 tab 04/29/18 Guaifenesin/Dextromethorphan 1 each PO BID #30 tab 08/31/20 [Mucinex Dm ER 1,200-60 mg Tab] Allergies Allergy/AdvReac Type Severity Reaction Status Date / Time latex Allergy Unknown Verified 03/26/21 19:38 Sulfa (Sulfonamide Allergy Unknown Verified 03/26/21 19:38 Antibiotics) lactose AdvReac Unknown Verified 03/26/21 19:38 berrie Allergy Swelling Uncoded 03/26/21 19:38 Review of Systems ROS Statement: Those systems with pertinent positive or pertinent negative responses have been documented in the HPI. ROS Other: All systems not noted in ROS Statement are negative. Past Medical History Past Medical History: Hearing Disorder / Deafness History of Any Multi-Drug Resistant Organisms: None Reported Past Surgical History: Orthopedic Surgery Additional Past Surgical History / Comment(s): face plastic surgery Past Psychological History: No Psychological Hx Reported Smoking Status: Current every day smoker Past Alcohol Use History: Occasional Past Drug Use History: Marijuana General Exam Limitations: physical limitation General appearance: alert, in no apparent distress Head exam: Present: atraumatic, normocephalic, normal inspection Eye exam: Present: normal appearance, PERRL, EOMI. Absent: scleral icterus, conjunctival injection, periorbital swelling ENT exam: Present: normal exam, mucous membranes moist Neck exam: Present: normal inspection, full ROM. Absent: tenderness, meningismus, lymphadenopathy Respiratory exam: Present: normal lung sounds bilaterally. Absent: respiratory distress, wheezes, rales, rhonchi, stridor Cardiovascular Exam: Present: regular rate, normal rhythm, normal heart sounds. Absent: systolic murmur, diastolic murmur, rubs, gallop, clicks GI/Abdominal exam: Present: soft, normal bowel sounds. Absent: distended, tenderness, guarding, rebound, rigid Course Vital Signs 03/26/21 19:36 Temperature 98.3 F Pulse Rate 78 Respiratory 20 Rate Blood Pressure 145/88 O2 Sat by Pulse 98 Oximetry Medical Decision Making - Medical Decision Making Vitals are stable. Coronavirus is positive. X-ray shows a normal chest. No change. Patient is stable, well appearing. He is stable for outpatient follow- up. He does not qualify for antibody infusion. At this time he needs to [place] for 10-14 days and follow-up with his doctor. We do recommend taking vitamins. Recommend returning for any worsening symptoms. - Lab Data Lab Results 03/26/21 Range/Units 19:54 Coronavirus (PCR) Detected A (Not Detectd) Disposition Clinical Impression: COVID-19 Disposition: HOME SELF-CARE Condition: Good Instructions (If sedation given, give patient instructions): Coronavirus Disease 2019 (COVID-19) Additional Instructions: Please take Tylenol for pain or fever. Please follow-up with your doctor. He must quarantine for 10-14 days from symptom onset. Return to the emergency room for any worsening symptoms. Is patient prescribed a controlled substance at d/c from ED?: No Referrals: Dilan Arrington MD [STAFF PHYSICIAN] - 1-2 days Time of Disposition: 20:12
== END 2021-03-26 20:33 | disposition home or self-care (01) ==
LOC: EC 19:20
DX: U07.1 COVID-19 (principal); H91.90 Unspecified hearing loss, unspecified ear; F17.200 Nicotine dependence, unspecified, uncomplicated; F12.90 Cannabis use, unspecified, uncomplicated
CPT/HCPCS: 71045; 87635; 99285

== ENCOUNTER 2021-09-20 10:52 | Emergency (ER) | payer OTHER ==
[2021-09-20 10:57] VITALS: RESP 18
--- NOTE | 2021-09-20 11:27 | XR ---
EXAMINATION TYPE: XR chest 2V DATE OF EXAM: 09/20/2021 COMPARISON: 03/26/2021 HISTORY: Cough TECHNIQUE: Frontal and lateral views of the chest are obtained. FINDINGS: There is no focal air space opacity, pleural effusion, or pneumothorax seen. The cardiac silhouette size is within normal limits. The osseous structures are intact. IMPRESSION: No acute cardiopulmonary process. No interval change since previous.
--- NOTE | 2021-09-20 12:10 | ED ---
General Adult HPI - General Chief complaint: Upper Respiratory Infection Stated complaint: Upper respiratory Time Seen by Provider: 09/20/21 11:36 Source: patient, RN notes reviewed Mode of arrival: ambulatory Limitations: no limitations - History of Present Illness Initial comments: 30-year-old male presents to the emergency room for a chief complaint of possible pneumonia. Patient reports that he has had a cough and congestion for the 3 days now. No fevers. Patient states that his coworker was diagnosed with pneumonia and so he thinks he probably has it. Patient denies shortness of breath. Patient is otherwise feeling well.Patient has no other complaints at this time including shortness of breath, chest pain, abdominal pain, nausea or vomiting, headache, or visual changes. - Related Data Previous Rx's Medication Instructions Recorded Benzonatate [Tessalon Perles] 200 mg PO Q8H PRN #15 capsule 09/20/21 guaiFENesin [Mucinex] 600 mg PO Q12HR PRN #20 tab 09/20/21 Allergies Allergy/AdvReac Type Severity Reaction Status Date / Time latex Allergy Unknown Verified 09/20/21 10:57 Sulfa (Sulfonamide Allergy Unknown Verified 09/20/21 10:57 Antibiotics) lactose AdvReac Unknown Verified 09/20/21 10:57 berrie Allergy Swelling Uncoded 09/20/21 10:57 Review of Systems ROS Statement: Those systems with pertinent positive or pertinent negative responses have been documented in the HPI. ROS Other: All systems not noted in ROS Statement are negative. Past Medical History Past Medical History: Hearing Disorder / Deafness Additional Past Medical History / Comment(s): covid History of Any Multi-Drug Resistant Organisms: None Reported Past Surgical History: Orthopedic Surgery Additional Past Surgical History / Comment(s): face plastic surgery Past Psychological History: No Psychological Hx Reported Smoking Status: Current every day smoker Past Alcohol Use History: Occasional Past Drug Use History: Marijuana General Exam Limitations: no limitations General appearance: alert, in no apparent distress Head exam: Present: atraumatic Eye exam: Present: normal appearance, PERRL, EOMI. Absent: scleral icterus, conjunctival injection ENT exam: Present: normal exam, mucous membranes moist Neck exam: Present: normal inspection, full ROM. Absent: tenderness Respiratory exam: Present: normal lung sounds bilaterally. Absent: respiratory distress, wheezes Cardiovascular Exam: Present: regular rate, normal rhythm, normal heart sounds GI/Abdominal exam: Present: soft, normal bowel sounds. Absent: distended, tenderness Course Vital Signs 09/20/21 10:54 Temperature 98.8 F Pulse Rate 108 H Respiratory 18 Rate Blood Pressure 134/98 O2 Sat by Pulse 100 Oximetry Medical Decision Making - Medical Decision Making Vitals are stable. Patient is well-appearing. Coronavirus is negative. Chest x-ray shows no acute cardiopulmonary process. No interval change. Patient will be discharged home to follow up with primary care. Will return here for any worsening symptoms. - Lab Data Lab Results 09/20/21 Range/Units 11:38 Coronavirus (PCR) Not Detected (Not Detectd) Disposition Clinical Impression: Cough Disposition: HOME SELF-CARE Condition: Good Instructions (If sedation given, give patient instructions): Upper Respiratory Infection (ED) Additional Instructions: Take medications as directed. Follow-up with your doctor. Return to the emergency room for any worsening symptoms. Prescriptions: guaiFENesin [Mucinex] 600 mg PO Q12HR PRN #20 tab PRN Reason: Congestion Benzonatate [Tessalon Perles] 200 mg PO Q8H PRN #15 capsule PRN Reason: Cough Is patient prescribed a controlled substance at d/c from ED?: No Referrals: Marlys Watts MD [REFERRING] - 1-2 days Time of Disposition: 12:34
[2021-09-20 12:51] VITALS: BP 138/78; PULSE 78; TEMP 98.6
== END 2021-09-20 12:51 | disposition home or self-care (01) ==
LOC: EC 10:52
DX: R05.9 Cough, unspecified (principal); R09.81 Nasal congestion; F17.200 Nicotine dependence, unspecified, uncomplicated; Z20.822 Contact with and (suspected) exposure to COVID-19; Z86.16 Personal history of COVID-19; Z88.2 Allergy status to sulfonamides; Z91.018 Allergy to other foods; Z91.040 Latex allergy status
CPT/HCPCS: 71046; 87635; 99283

== ENCOUNTER 2022-08-02 15:26 | Emergency (ER) | payer OTHER ==
[2022-08-02] MEDS ORDERED: KETOROLAC 15 MG/ML 1 ML VIAL IM STA (16:52)
[2022-08-02] MEDS ORDERED: ACETAMINOPHEN TAB 500 MG TAB PO STA (16:53)
[2022-08-02] MEDS ORDERED: PENICILLIN VK 500MG STARTER 4 TAB BTL PO STA (16:53)
--- NOTE | 2022-08-02 17:00 | ED ---
ENT HPI - General Chief complaint: Dental/Oral Stated complaint: mouth issues Time Seen by Provider: 08/02/22 16:51 Source: patient, RN notes reviewed Mode of arrival: ambulatory Limitations: no limitations - History of Present Illness Initial comments: This is a pleasant 31-year-old male who presents to emergency complaining of recurrent dental pain. Patient states he was seen here over a month ago was treated with round of antibiotics. Patient states he has pain to his upper incisor area. Patient states he has been unable to get in with a dentist. Patient continue to smoke cigarettes. Has no history of immunosuppression or diabetes mellitus. No headache, no fever or chills, no changes in vision or hearing, no sore throat or difficulty with speech, no neck pain, no chest pain or shortness of breath, no abdominal pain, no nausea or vomiting, no changes in urination or bowel movements, no numbness or tingling, no extremity pain, no skin rashes or lesions. Past medical, surgical, social, and family history reviewed. MD complaint: tooth pain - Related Data Previous Rx's Medication Instructions Recorded Benzonatate [Tessalon Perles] 200 mg PO Q8H PRN #15 capsule 09/20/21 guaiFENesin [Mucinex] 600 mg PO Q12HR PRN #20 tab 09/20/21 Ketorolac [Toradol] 10 mg PO Q8HR #21 tab 07/06/22 Penicillin V Potassium [Pen Vee K] 500 mg PO QID #40 tablet 07/06/22 Acetaminophen Tab [Tylenol Tab] 500 mg PO Q6H PRN #24 tablet 08/02/22 Naproxen [Naprosyn] 375 mg PO Q12HR PRN #20 tablet 08/02/22 Penicillin V Potassium [Pen Vee K] 500 mg PO QID #40 tablet 08/02/22 Allergies Allergy/AdvReac Type Severity Reaction Status Date / Time latex Allergy Unknown Verified 08/02/22 15:56 Sulfa (Sulfonamide Allergy Unknown Verified 08/02/22 15:56 Antibiotics) lactose AdvReac Unknown Verified 08/02/22 15:56 berrie Allergy Swelling Uncoded 08/02/22 15:56 Review of Systems ROS Statement: Those systems with pertinent positive or pertinent negative responses have been documented in the HPI. ROS Other: All systems not noted in ROS Statement are negative. Past Medical History Past Medical History: Hearing Disorder / Deafness Additional Past Medical History / Comment(s): covid History of Any Multi-Drug Resistant Organisms: None Reported Past Surgical History: Orthopedic Surgery Additional Past Surgical History / Comment(s): face plastic surgery Past Psychological History: No Psychological Hx Reported Smoking Status: Current every day smoker Past Alcohol Use History: Occasional Past Drug Use History: Marijuana General Exam - General Exam Comments Initial Comments: Vital signs reviewed, patient does not appear to be ill or toxic. Moist mucous membranes. Capillary refill is normal. No mottling. Adequate skin turgor Limitations: no limitations General appearance: alert, in distress (Mild, secondary to dental pain) Head exam: Present: atraumatic, normocephalic, normal inspection Eye exam: Present: normal appearance, PERRL, EOMI. Absent: scleral icterus, conjunctival injection, periorbital swelling ENT exam: Present: normal oropharynx, mucous membranes moist, normal external ear exam. Absent: normal exam, mucous membranes dry Expanded Ear exam: Present: normal external inspection Mouth exam: Present: normal external inspection, tongue normal. Absent: drooling, trismus, muffled voice, tongue elevation, laceration Teeth exam: Present: dental caries, dental tenderness # (Adjacent to tooth #9.), gingival enlargement (Gingival erythema and irritation to upper incisor area. Especially adjacent to tooth #9.), other (Patient appears to have an early abscess formation superior to tooth #9.) Throat exam: normal inspection. negative: tonsillar erythema, tonsillomegaly, tonsillar exudate, R peritonsillar mass, L peritonsillar mass Neck exam: Present: normal inspection, full ROM. Absent: tenderness, meningismus, lymphadenopathy, thyromegaly Respiratory exam: Present: normal lung sounds bilaterally. Absent: respiratory distress, wheezes, rales, rhonchi, stridor Cardiovascular Exam: Present: regular rate, normal rhythm, normal heart sounds. Absent: systolic murmur, diastolic murmur, rubs, gallop, clicks GI/Abdominal exam: Present: soft. Absent: tenderness Extremities exam: Present: normal inspection Back exam: Present: normal inspection Neurological exam: Present: alert, oriented X3, CN II-XII intact Psychiatric exam: Present: normal affect, normal mood Skin exam: Present: warm, dry, intact, normal color. Absent: rash Course Vital Signs 08/02/22 15:54 Temperature 97 F L Pulse Rate 83 Respiratory 16 Rate Blood Pressure 136/89 O2 Sat by Pulse 98 Oximetry Procedures - Smoking Cessation Time Spent Discussing Smoking Cessation w/Patient (Minutes): 3 Patient Acknowledges Need for Cessation: Yes Medical Decision Making - Medical Decision Making Patient percents of symptomology consistent with an early dental infection adjacent to tooth #9. No evidence of drainable abscess at this point. We'll treat conservatively with antibiotics and anti-inflammatory medication. We'll add an acetaminophen if necessary. I did advise the patient that he needs to get to a dentist as soon as possible. Also provided a primary care physician for the patient. Smoking cessation was discussed and advised. Patient was told to return to the ER for any signs or symptoms worsen. Told to return immediately if any other problems arise. All questions answered. Treatment plan discussed. Patient in agreement Every effort has been made to ensure accuracy of this dictation. However, due to the limitations of electronic medical records and dictation devices, errors in charting still occur. Last Repairer Dr. Scherer Disposition Clinical Impression: Dental abscess, Cigarette smoker Disposition: HOME SELF-CARE Condition: Stable Instructions (If sedation given, give patient instructions): How to Stop Smoking (ED), Dental Abscess (ED) Additional Instructions: Follow-up with the dentist as soon as possible. Follow-up with your regular physician as directed. Return to the ER immediately if any symptoms worsen, new symptoms arise, or any other problems develop. Prescriptions: Naproxen [Naprosyn] 375 mg PO Q12HR PRN #20 tablet PRN Reason: Pain Penicillin V Potassium [Pen Vee K] 500 mg PO QID #40 tablet Acetaminophen Tab [Tylenol Tab] 500 mg PO Q6H PRN #24 tablet PRN Reason: Pain Is patient prescribed a controlled substance at d/c from ED?: No Referrals: Marc Gage [STAFF PHYSICIAN] - 08/07/22 Time of Disposition: 17:00
[2022-08-02 17:19] VITALS: BP 128/77; PULSE 86; RESP 18; TEMP 97.8
== END 2022-08-02 17:18 | disposition home or self-care (01) ==
LOC: EC 15:26
DX: K04.7 Periapical abscess without sinus (principal); F17.200 Nicotine dependence, unspecified, uncomplicated; Z91.040 Latex allergy status; Z88.2 Allergy status to sulfonamides; Z91.09 Other allergy status, other than to drugs and biological substances
CPT/HCPCS: 99283; 96372; J1885

== ENCOUNTER 2022-10-18 10:21 | Emergency (ER) | payer OTHER ==
[2022-10-18 10:36] VITALS: BP 139/87; PULSE 90; RESP 18; TEMP 98.4
--- NOTE | 2022-10-18 11:51 | ED ---
ENT HPI - General Chief complaint: Dental/Oral Stated complaint: Dental Pain Time Seen by Provider: 10/18/22 11:38 Source: patient Mode of arrival: ambulatory Limitations: no limitations - History of Present Illness Initial comments: Patient is a 31-year-old male who presents to the emergency department with a chief complaint of dental pain. This is patient's third visit in the past 4 months with this complaint. Patient states symptoms started yesterday in his right lower molar. Reports significant pain without swelling, trouble breathing, fever. Patient states he has not been able to see a dentist because they are not able to evaluate him until December. - Related Data Previous Rx's Medication Instructions Recorded Benzonatate [Tessalon Perles] 200 mg PO Q8H PRN #15 capsule 09/20/21 guaiFENesin [Mucinex] 600 mg PO Q12HR PRN #20 tab 09/20/21 Ketorolac [Toradol] 10 mg PO Q8HR #21 tab 07/06/22 Penicillin V Potassium [Pen Vee K] 500 mg PO QID #40 tablet 07/06/22 Acetaminophen Tab [Tylenol Tab] 500 mg PO Q6H PRN #24 tablet 08/02/22 Naproxen [Naprosyn] 375 mg PO Q12HR PRN #20 tablet 08/02/22 Penicillin V Potassium [Pen Vee K] 500 mg PO QID #40 tablet 08/02/22 Acetaminophen Tab [Tylenol] 650 mg PO Q6H PRN #30 tab 10/18/22 Ketorolac [Toradol] 10 mg PO Q8HR PRN #15 tab 10/18/22 Penicillin V Potassium [Pen Vee K] 500 mg PO QID #40 tablet 10/18/22 Allergies Allergy/AdvReac Type Severity Reaction Status Date / Time latex Allergy Unknown Verified 10/18/22 10:36 Sulfa (Sulfonamide Allergy Unknown Verified 10/18/22 10:36 Antibiotics) lactose AdvReac Unknown Verified 10/18/22 10:36 berrie Allergy Swelling Uncoded 10/18/22 10:36 Review of Systems ROS Statement: Those systems with pertinent positive or pertinent negative responses have been documented in the HPI. ROS Other: All systems not noted in ROS Statement are negative. Past Medical History Past Medical History: Hearing Disorder / Deafness Additional Past Medical History / Comment(s): covid History of Any Multi-Drug Resistant Organisms: None Reported Past Surgical History: Orthopedic Surgery Additional Past Surgical History / Comment(s): face plastic surgery Past Psychological History: No Psychological Hx Reported Smoking Status: Current every day smoker Past Alcohol Use History: Occasional Past Drug Use History: Marijuana General Exam Limitations: no limitations General appearance: alert, in no apparent distress Head exam: Present: atraumatic, normocephalic, normal inspection Eye exam: Present: normal appearance, PERRL, EOMI. Absent: scleral icterus, conjunctival injection, periorbital swelling ENT exam: Absent: normal oropharynx (Widespread poor dentition with dental tenderness of the right lower molar. Gingival erythema and irritation in this region. No drainable abscess) Neck exam: Present: normal inspection. Absent: tenderness Respiratory exam: Present: normal lung sounds bilaterally. Absent: respiratory distress, wheezes, rales, rhonchi, stridor Cardiovascular Exam: Present: regular rate, normal rhythm, normal heart sounds. Absent: systolic murmur, diastolic murmur, rubs, gallop, clicks Neurological exam: Present: alert, oriented X3, CN II-XII intact Psychiatric exam: Present: normal affect, normal mood Course Vital Signs 10/18/22 10:34 Temperature 98.4 F Pulse Rate 90 Respiratory 18 Rate Blood Pressure 139/87 O2 Sat by Pulse 96 Oximetry Medical Decision Making - Medical Decision Making This is a 31-year-old male presenting with toothache. Symptomatology and physical exam is consistent with early dental infection. Patient will be treated with penicillin v and is advised to establish care with a new dentist who is able to evaluate him sooner. Dr. Toribio is my attending. Disposition Clinical Impression: Toothache Disposition: HOME SELF-CARE Condition: Good Instructions (If sedation given, give patient instructions): Dental Abscess (ED), Toothache (ED) Additional Instructions: Take medication as directed. You will need to establish care with a new dentist who can evaluate you sooner than December. It is also important to establish care with primary care provider. Return to the emergency department experience new, concerning, or worsening symptoms. Prescriptions: Penicillin V Potassium [Pen Vee K] 500 mg PO QID #40 tablet Ketorolac [Toradol] 10 mg PO Q8HR PRN #15 tab PRN Reason: pain Acetaminophen Tab [Tylenol] 650 mg PO Q6H PRN #30 tab PRN Reason: Pain Is patient prescribed a controlled substance at d/c from ED?: No Referrals: None,Stated [Primary Care Provider] - 1-2 days Time of Disposition: 11:51
== END 2022-10-18 11:59 | disposition home or self-care (01) ==
LOC: EC 10:21
DX: K04.7 Periapical abscess without sinus (principal); F17.200 Nicotine dependence, unspecified, uncomplicated; Z88.2 Allergy status to sulfonamides; Z91.040 Latex allergy status; Z86.16 Personal history of COVID-19; Z91.011 Allergy to milk products
CPT/HCPCS: 99282

== ENCOUNTER 2023-01-31 07:01 | Emergency (ER) | payer OTHER ==
[2023-01-31 07:11] VITALS: PULSE 85; RESP 18
[2023-01-31] MEDS ORDERED: AMOXICILLIN 875 MG TAB PO STA (07:19)
[2023-01-31] MEDS ORDERED: HYDROmorphone 0.5 MG/0.5 ML SYRINGE IVP STA (07:22)
[2023-01-31] MEDS ORDERED: KETOROLAC 15 MG/ML 1 ML VIAL IM STA (07:22)
[2023-01-31] MEDS ORDERED: ACET/COD 300 MG/30 MG STARTER PACK 6 TAB BTL PO STA (07:23)
--- NOTE | 2023-01-31 07:35 | ED ---
General Adult HPI - General Chief complaint: Dental/Oral Stated complaint: Dental Pain Time Seen by Provider: 01/31/23 07:10 Source: patient, RN notes reviewed, old records reviewed Mode of arrival: ambulatory Limitations: no limitations - History of Present Illness Initial comments: This is a 32-year-old male who presents emergency Department complaining of dental pain. Patient states he has an appointment for surgery coming up to have his teeth removed. Patient is complaining of pain on the right lower molar region. Patient denies any fever chills. Patient denies any area of redness on the skin. Patient denies any other problems. - Related Data Previous Rx's Medication Instructions Recorded Benzonatate [Tessalon Perles] 200 mg PO Q8H PRN #15 capsule 09/20/21 guaiFENesin [Mucinex] 600 mg PO Q12HR PRN #20 tab 09/20/21 Ketorolac [Toradol] 10 mg PO Q8HR #21 tab 07/06/22 Penicillin V Potassium [Pen Vee K] 500 mg PO QID #40 tablet 07/06/22 Acetaminophen Tab [Tylenol Tab] 500 mg PO Q6H PRN #24 tablet 08/02/22 Naproxen [Naprosyn] 375 mg PO Q12HR PRN #20 tablet 08/02/22 Penicillin V Potassium [Pen Vee K] 500 mg PO QID #40 tablet 08/02/22 Acetaminophen Tab [Tylenol] 650 mg PO Q6H PRN #30 tab 10/18/22 Ketorolac [Toradol] 10 mg PO Q8HR PRN #15 tab 10/18/22 Penicillin V Potassium [Pen Vee K] 500 mg PO QID #40 tablet 10/18/22 Amoxicillin 500 mg PO Q8H #30 capsule 01/31/23 Ibuprofen [Motrin] 600 mg PO Q6HR PRN #20 tab 01/31/23 Allergies Allergy/AdvReac Type Severity Reaction Status Date / Time latex Allergy Unknown Verified 01/31/23 07:11 Sulfa (Sulfonamide Allergy Unknown Verified 01/31/23 07:11 Antibiotics) lactose AdvReac Unknown Verified 01/31/23 07:11 berrie Allergy Swelling Uncoded 01/31/23 07:11 Review of Systems ROS Statement: Those systems with pertinent positive or pertinent negative responses have been documented in the HPI. ROS Other: All systems not noted in ROS Statement are negative. Past Medical History Past Medical History: Hearing Disorder / Deafness Additional Past Medical History / Comment(s): covid History of Any Multi-Drug Resistant Organisms: None Reported Past Surgical History: Orthopedic Surgery Additional Past Surgical History / Comment(s): face plastic surgery Past Psychological History: No Psychological Hx Reported Smoking Status: Current every day smoker Past Alcohol Use History: Occasional Past Drug Use History: Marijuana General Exam - General Exam Comments Initial Comments: GENERAL Patient is well-developed and well-nourished. Patient is in mild distress. EYES Patient's pupils are equal and round. Extraocular motion is intact MOUTH Patient has multiple teeth with severe caries the area around the lower right molar is red but there is no fluctuance is no obvious abscess. SKIN Unremarkable NEURO The patient is alert and oriented 3 PYSCH Patient has normal interpersonal interactions. MUSCULOSKELETAL All 4 extremities with full range of motion. Limitations: no limitations Course Vital Signs 01/31/23 07:08 Temperature 98.1 F Pulse Rate 85 Respiratory 18 Rate Blood Pressure 127/81 O2 Sat by Pulse 99 Oximetry Medical Decision Making - Medical Decision Making Was pt. sent in by a medical professional or institution (, PA, CARDIOLOGY MANAGER, urgent care, hospital, or penitentiary...) When possible be specific @ -No Did you speak to anyone other than the patient for history (EMS, parent, family, police, friend...)? What history was obtained from this source @ -No Did you review nursing and triage notes (agree or disagree)? Why? @ -I reviewed and agree with nursing and triage notes Were old charts reviewed (outside hosp., previous admission, EMS record, old EKG, old radiological studies, urgent care reports/EKG's, penitentiary records)? Report findings @ -No old charts were reviewed Differential Diagnosis (chest pain, altered mental status, abdominal pain women, abdominal pain men, vaginal bleeding, weakness, fever, dyspnea, syncope, headache, dizziness, GI bleed, back pain, seizure, CVA, palpatations, mental health, musculoskeletal)? @ -Abscess, dental infection, EKG interpreted by me (3pts min.). @ -As above X-rays interpreted by me (1pt min.). @ -None done CT interpreted by me (1pt min.). @ -None done U/S interpreted by me (1pt. min.). @ -None done What testing was considered but not performed or refused? (CT, X-rays, U/S, labs)? Why? @ -None What meds were considered but not given or refused? Why? @ -None Did you discuss the management of the patient with other professionals (professionals i.e. , PA, CARDIOLOGY MANAGER, lab, RT, psych nurse, geriatric social work professor, inspecting machine adjuster, teacher, commissioned security officer, family independence case manager)? Give summary @ -No Was smoking cessation discussed for >3mins.? @ -No Was critical care preformed (if so, how long)? @ -No Were there social determinants of health that impacted care today? How? (Homelessness, low income, unemployed, alcoholism, drug addiction, transportation, low edu. Level, literacy, decrease access to med. care, longterm, rehab)? @ -No Was there de-escalation of care discussed even if they declined (Discuss DNR or withdrawal of care, Hospice)? DNR status @ -No What co-morbidities impacted this encounter? (DM, HTN, Smoking, COPD, CAD, Cancer, CVA, ARF, Chemo, Hep., AIDS, mental health diagnosis, sleep apnea, morbid obesity)? @ -None Was patient admitted / discharged? Hospital course, mention meds given and route, prescriptions, significant lab abnormalities, going to OR and other pertinent info. @ -She was given Toradol and a shot of Dilaudid for pain in the emergency department he is also given amoxicillin emergency department. Patient states he has dental appointment coming up soon and he will follow-up with them. Patient be sent home with some Motrin and amoxicillin and Tylenol with Codeine Undiagnosed new problem with uncertain prognosis? @ -No Drug Therapy requiring intensive monitoring for toxicity (Heparin, Nitro, Insulin, Cardizem)? @ -No Were any procedures done? @ -No Diagnosis/symptom? @ -Dental infection Acute, or Chronic, or Acute on Chronic? @ -Acute Uncomplicated (without systemic symptoms) or Complicated (systemic symptoms)? @ -Uncomplicated Side effects of treatment? @ -No Exacerbation, Progression, or Severe Exacerbation? @ -No Poses a threat to life or bodily function? How? (Chest pain, [place], [place], pneumonia, PE, COPD, DKA, ARF, appy, cholecystitis, CVA, Diverticulitis, Homicidal, Suicidal, threat to staff... and all critical care pts) @ -No Disposition Clinical Impression: Dental caries, Dental infection Disposition: HOME SELF-CARE Condition: Good Instructions (If sedation given, give patient instructions): Toothache (ED) Prescriptions: Amoxicillin 500 mg PO Q8H #30 capsule Ibuprofen [Motrin] 600 mg PO Q6HR PRN #20 tab PRN Reason: For pain Is patient prescribed a controlled substance at d/c from ED?: No Referrals: None,Stated [Primary Care Provider] - 1-2 days Time of Disposition: 07:30
[2023-01-31 07:53] VITALS: BP 120/81; TEMP 98
== END 2023-01-31 08:06 | disposition home or self-care (01) ==
LOC: EC 07:01
DX: K02.9 Dental caries, unspecified (principal); K04.7 Periapical abscess without sinus; F17.200 Nicotine dependence, unspecified, uncomplicated; F12.90 Cannabis use, unspecified, uncomplicated; Z86.16 Personal history of COVID-19; Z88.1 Allergy status to other antibiotic agents; Z88.2 Allergy status to sulfonamides; Z91.040 Latex allergy status
CPT/HCPCS: 99282; 96374 ×2; 96372 ×2; 99283; J1885; J1170

== ENCOUNTER 2025-05-06 01:51 | Emergency (ER) | payer OTHER ==
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
[2025-05-06 02:02] VITALS: RESP 18; TEMP 96.6
[2025-05-06] MEDS: SODIUM CHLORIDE 0.9% 1,000 ML IV ONE (02:05)
[2025-05-06] MEDS: ONDANSETRON 4 MG/2 ML VIAL IVP STA (02:06)
[2025-05-06] MEDS: MORPHINE SULFATE 4 MG/ML SYRINGE IVP STA (02:07)
[2025-05-06] MEDS: KETOROLAC 15 MG/ML 1 ML VIAL IVP STA ×2 (02:07→02:55)
[2025-05-06] MEDS: HYDROmorphone 1 MG/ML 1 ML SYRINGE IVP STA (02:56)
[2025-05-06 02:59] VITALS: BP 116/83; PULSE 60
[2025-05-06] MEDS: HYDROcodone/APAP 5-325MG 1 EACH TAB PO STA (03:32)
[2025-05-06] MEDS: ONDANSETRON 4 MG ODT STARTER PACK 2 TAB BTL PO STA (03:34)
[2025-05-06] MEDS: ACET/COD 300 MG/30 MG STARTER PACK 6 TAB BTL PO STA (03:34)
--- NOTE | 2025-05-06 03:39 | XR ---
EXAM: XR Right Clavicle Complete, 2 or More Views CLINICAL HISTORY: ITS.REASON XR Reason: FALL, R SHLD PAIN TECHNIQUE: Frontal and lordotic views of the right clavicle. COMPARISON: No relevant prior studies available. FINDINGS: Bones/joints: Displaced, comminuted fracture of the mid clavicle diaphysis which is by 3.4 cm. No dislocation. Soft tissues: Unremarkable. IMPRESSION: Displaced, comminuted fracture of the mid clavicle diaphysis which is by 3.4 cm.
== END 2025-05-06 03:53 | disposition home or self-care (01) ==
LOC: EC 01:51
DX: S42.021A Displaced fracture of shaft of right clavicle, initial encounter for closed fracture (principal); F17.200 Nicotine dependence, unspecified, uncomplicated; Z88.1 Allergy status to other antibiotic agents; Z88.2 Allergy status to sulfonamides; Z91.040 Latex allergy status; V87.8XXA Person injured in other specified noncollision transport accidents involving motor vehicle (traffic), initial encounter
CPT/HCPCS: 73000; 99283; 96374; 96375; 96376; 96361; J2270; J2405; J1171; J1885; S0119